=== PATIENT | male | born 1995 | race Caucasian/White ===

== ENCOUNTER 2020-11-20 05:23 | Emergency (ER) | payer MEDICAID ==
[~2020-11-20] VITALS: Ht 177.8 cm; Wt 79.4 kg
[2020-11-20 05:25] VITALS: BP 131/72
--- NOTE | 2020-11-20 05:39 | NUR ---
bibs for c/o nasal pain s/p he was elbowed in the face while playing baseball yesterday . Patient reported he had bleeding from his nose but denied KO. pt ambulatory w/ steady gaits to bed 1 ER . was placed on a monitor . VSS. will cont to monitor ,
--- NOTE | 2020-11-20 06:17 | NUR ---
PT WAS TAKEN FOR CT
[2020-11-20] MEDS ORDERED: IBUP-1957 PO (06:59)
== END 2020-11-20 07:51 | disposition home or self-care (01) ==
LOC: ER 05:23
DX: S02.2XXA Fracture of nasal bones, initial encounter for closed fracture (principal); X58.XXXA Exposure to other specified factors, initial encounter; Y93.64 Activity, baseball; Y92.89 Other specified places as the place of occurrence of the external cause; Y99.8 Other external cause status
CPT/HCPCS: 70486-TC

== ENCOUNTER 2022-02-11 22:42 | Emergency (ER) | payer MEDICAID ==
[~2022-02-11] VITALS: Ht 172.7 cm; Wt 83.9 kg
[2022-02-11 22:42] VITALS: BP 132/79
[~2022-02-11 22:42] MED LIST: IBUP-1957 PO
--- NOTE | 2022-02-11 22:42 | NUR ---
left 5th digit pain/ swelling s/p glf 2 weeks ago. Pt A/Ox4 TOLERATING R/A WELL WITH NO SOB. SAFETY MEASURES IN PLACE.
--- NOTE | 2022-02-11 23:50 | NUR ---
XRAY DONE AT BEDSIDE.
--- NOTE | 2022-02-12 00:13 | NUR ---
DR. ROGER GONZALEZ AT PT'S BEDSIDE
[2022-02-12] MEDS ORDERED: IBUPROFEN 400 MG TABLET ONE (00:26)
[2022-02-12] MEDS: IBUPROFEN 400 MG TABLET PO ONE (00:28)
--- NOTE | 2022-02-12 00:29 | NUR ---
Patient discharged to home in stable condition. Written and verbal after care instructions given. Patient verbalizes understanding of instruction. pt ambulatory with a steady gait
== END 2022-02-12 00:39 | disposition home or self-care (01) ==
LOC: ER 22:44
DX: S60.052A Contusion of left little finger without damage to nail, initial encounter (principal); Z79.1 Long term (current) use of non-steroidal anti-inflammatories (NSAID); W18.30XA Fall on same level, unspecified, initial encounter; Y93.89 Activity, other specified; Y92.89 Other specified places as the place of occurrence of the external cause; Y99.8 Other external cause status
CPT/HCPCS: 73140-TC

== ENCOUNTER 2023-02-16 22:57 | Emergency (ER) | payer MEDICAID ==
[~2023-02-16] VITALS: Ht 177.8 cm; Wt 83.9 kg
[2023-02-17] MEDS ORDERED: MORPHINE SULFATE INJ 4 MG/ML DISP.SYRIN ONE (01:28)
[2023-02-17] MEDS ORDERED: LIDOCAINE 5% (PATCH) 1 EA PATCH TP ONE (01:28)
[2023-02-17] MEDS ORDERED: CYCLOBENZAPRINE 10 MG TABLET ONE (01:29)
[2023-02-17] MEDS ORDERED: CYCLOBENZAPRINE 10 MG TABLET PO ONE (01:30)
[2023-02-17] MEDS ORDERED: LIDOCAINE 5% (PATCH) 1 EA PATCH TP SCH (01:30)
[2023-02-17] MEDS ORDERED: MORPHINE SULFATE INJ 2 MG/ML DISP.SYRIN IM ONE (01:30)
[2023-02-17] MEDS ORDERED: DIAZEPAM 5 MG TABLET ONE (03:27)
[2023-02-17] MEDS ORDERED: DIAZEPAM 5 MG TABLET PO ONE (03:30)
[2023-02-17] MEDS ORDERED: HYDROMORPHONE 1 MG/1 ML DISP.SYRIN ONE (04:54)
[2023-02-17] MEDS ORDERED: HYDROMORPHONE 1 MG/1 ML DISP.SYRIN IV ONE (05:00)
[2023-02-17] MEDS ORDERED: IBUP-1955 PO (08:43)
[2023-02-17] MEDS ORDERED: CYCL5TAB PO (08:43)
[2023-02-17 08:55] VITALS: BP 120/82; TEMP 98; O2SAT 99
== END 2023-02-17 08:55 | disposition home or self-care (01) ==
LOC: ER 23:01
DX: M54.50 Low back pain, unspecified (principal); Z79.899 Other long term (current) drug therapy; Z20.822 Contact with and (suspected) exposure to COVID-19
CPT/HCPCS: 99285; 96374; 72131; 87426; 96372; J2270; J1170; C9803

== ENCOUNTER 2023-12-16 22:36 | Emergency (ER) | payer MEDICAID ==
[~2023-12-16] VITALS: Ht 177.8 cm; Wt 83.9 kg
[~2023-12-16 22:36] MED LIST changes: +CYCL5TAB PO; +IBUP-1955 PO; -IBUP-1957 PO
[2023-12-16 23:18] VITALS: TEMP 98
[2023-12-16] MEDS ORDERED: HYDROCODONE/APAP 5/325MG TABLET ONE (23:34)
[2023-12-16] MEDS: HYDROCODONE/APAP 5/325MG TABLET PO ONE (23:40)
[2023-12-16] MEDS: KETOROLAC TROMETHAMINE 10 MG TABLET PO STA (23:41)
[2023-12-16] MEDS ORDERED: KETOROLAC TROMETHAMINE INJ 30 MG/ML VIAL ONE (23:59)
[2023-12-17] MEDS: KETOROLAC TROMETHAMINE INJ 60 MG/2 ML VIAL IM ONE
[2023-12-17] MEDS ORDERED: KETO10TA2 PO (01:10)
[2023-12-17] MEDS ORDERED: HYDR-4209 PO (01:10)
[2023-12-17 01:44] VITALS: BP 132/78; O2SAT 99
[2023-12-17] MEDS ORDERED: AMOX-430 PO (04:47)
== END 2023-12-17 01:44 | disposition home or self-care (01) ==
LOC: ER 23:05
DX: S02.69XA Fracture of mandible of other specified site, initial encounter for closed fracture (principal); S00.03XA Contusion of scalp, initial encounter; Z79.1 Long term (current) use of non-steroidal anti-inflammatories (NSAID); Z79.891 Long term (current) use of opiate analgesic; Z79.899 Other long term (current) drug therapy; Y04.8XXA Assault by other bodily force, initial encounter; Y93.89 Activity, other specified; Y92.091 Bathroom in other non-institutional residence as the place of occurrence of the external cause; Y99.8 Other external cause status
CPT/HCPCS: 99285; 70450; 70486; 96372; J1885